=== PATIENT | female | born 1970 | race Caucasian/White ===

== ENCOUNTER 2016-12-17 06:05 | Day surgery (SDC) ==
[2016-12-12 15:42] LABS: URINE MICRO REVIEW NEEDED? NO; URINE SOURCE CLEAN CATCH
[2016-12-12 15:56] LABS: HEMATOCRIT 44.4 % (37.0-47.0); HEMOGLOBIN 14.8 g/dL (12.0-16.0); MCH 30.5 PG (27-31); MCHC 33.3 g/dL (33-37); MCV 91.4 FL (81-99); MPV 11.1 FL (7.4-10.4); RBC 4.86 XMIL (4.2-5.4)
[2016-12-12 15:58] LABS: BILIRUBIN URINE NEGATIVE (NEGATIVE); BLOOD URINE NEGATIVE (NEGATIVE); COLOR STRAW; GLUCOSE URINE NEGATIVE (NEGATIVE); LEUKOCYTES URINE NEGATIVE (NEGATIVE); NITRITE URINE NEGATIVE (NEGATIVE); PROTEIN URINE NEGATIVE (NEGATIVE); SP GRAVITY URINE 1.008; TURBIDITY URINE CLEAR (CLEAR); UROBILINOGEN URINE NORMAL (NORMAL)
[2016-12-12 16:00] LABS: UR EPITHELIAL CELLS <10 /HPF (<10); URINE BACTERIA NEGATIVE /HPF; URINE RBC <10 /HPF (<10); URINE WBC <10 /HPF (<10)
[2016-12-17] MEDS ORDERED: SUFENTA ONE (06:10)
[2016-12-17] MEDS ORDERED: PEPCID ONE (06:22)
[2016-12-17] MEDS ORDERED: REGLAN ONE (06:22)
[2016-12-17] MEDS ORDERED: LR 1,000 ML ONE ×2 (06:22→10:32)
[2016-12-17] MEDS ORDERED: TRANSDERM-SCOP ONE (06:22)
[2016-12-17] MEDS ORDERED: KEFZOL 1 GM/D5W 50 ML ONE ×2 (06:23→11:15)
[2016-12-17] MEDS ORDERED: BACITRACIN ONE (06:31)
[2016-12-17] MEDS ORDERED: NS 2,000 ML ONE (06:31)
[2016-12-17] MEDS ORDERED: VERSED ONE (10:22)
[2016-12-17] MEDS ORDERED: DIPRIVAN 1% ONE (10:23)
[2016-12-17] MEDS ORDERED: NEOSTIGMINE ONE (10:27)
[2016-12-17] MEDS ORDERED: STERILE WATER INJ. ONE (10:27)
[2016-12-17] MEDS ORDERED: LUBRIFRESH PM OPH OINTMENT ONE (10:27)
[2016-12-17] MEDS ORDERED: NORCURON ONE (10:27)
[2016-12-17] MEDS ORDERED: NEO-SYNEPHRINE ONE (10:27)
[2016-12-17] MEDS ORDERED: ROBINUL ONE (10:27)
[2016-12-17] MEDS ORDERED: ZOFRAN ONE (10:27)
[2016-12-17] MEDS ORDERED: LR 3,000 ML ONE (10:28)
[2016-12-17] MEDS ORDERED: DECADRON ONE (10:28)
[2016-12-17] MEDS ORDERED: QUELICIN (DOSE) ONE (10:28)
[2016-12-17] MEDS ORDERED: XYLOCAINE-MPF 2% ONE (10:28)
[2016-12-17] MEDS: DEMEROL ONE ×2 (10:31→10:36)
[2016-12-17] MEDS ORDERED: NORCO-10 ONE (11:15)
[2016-12-17] MEDS ORDERED: PHENERGAN ONE (11:23)
--- NOTE | 2016-12-17 12:32 | OPERATIVE NOTE ---
PROCEDURE DATE: 12/17/2016 PROCEDURE PERFORMED: Immediate exchange of right breast reconstructive implant to a new implant and left augmentation mammoplasty. SURGEON: Marin Montes MD. ICD 10 DIAGNOSES CODES: 1. N64.89 - Deformity of the breast. 2. Z86.3 - Personal history of breast cancer. CPT CODES: 1. 27003 - Immediate insertion of breast implant on the right. 2. 16714 - Left augmentation mammoplasty. INDICATIONS FOR PROCEDURE: This patient is a 46-year-old white female who had a breast cancer in 2005. At that point, she was treated with a mastectomy, a right latissimus dorsi flap and the immediate insertion of an implant, which was a 168, 120 mL implant, filled to 120 mL. She has done well for the past 10 years. However, the implant on the right side and the breast on the right side. Has changed shape through time as her latissimus dorsi the muscle has atrophied and she now requires revision of this implant to have a wider implant with more projection to match her other breast. Because the new implant will have more of a round implant look on the right side, it is necessary to do a small augmentation on her left side for symmetry. The patient was seen in the office for informed consent for the augmentation on 12/09/2016. At that point, she understood that she would have an augmentation mammoplasty on the left side and the goal of the procedure was to make her breast bigger to match what we were going to do to the right side. She understands she will have an inframammary incision and the implant will be placed partially behind the muscle she knows the risks include infection, blood loss, blood clots in legs, heart problems, lung problems, allergic reactions, or blood and serum collections in the operative sites which might require drainage. She understands that exact size and shape cannot be guaranteed as with nonoperative breast there can be some asymmetry from side to side. She knows that her skin incisions will be in the inframammary fold and that is where the scar will be. She understands that her nipple sensation can be decreased. She understands that the implant can be palpable or visible with overlying ripples. She understands she can get hard scar capsule contracture and these are saline implants and they can deflate. She knows in the future she is to have routine mammography on the left side. DESCRIPTION OF PROCEDURE: The patient was brought to the operating room after she was marked in outpatient surgery in the sitting position. She went to the operating room, had general anesthesia, and was prepped and draped. The operation began by making a superior periareolar incision around the right nipple-areolar complex reconstruction, carrying the dissection down to the level of the muscle, opening the muscle, aspirating the implant, and removing it from the pocket. Some scoring was done of the pocket, 360 degrees around, and especially in the lateral inferior pole, where there was an indentation from the atrophy of the latissimus. A 240 mL sizer was placed into this pocket and filled to 240 mL to begin to assess the size that would be appropriate. Then, attention was turned to the left breast. The 3 cm lower pole incision for the augmentation was made in the standard fashion and carried down through the breast tissue to the level of the pectoralis major muscle and then the muscle was lifted to create a submuscular pocket without difficulty. On this side, the 240 mL sizer that was placed on the right side was removed and placed on this side and filled to 210 mL. Then, a 270 mL sizer was placed in the right side and filled to 300 mL. The size and shape of these devices seemed to be appropriate for the patient to give her good symmetry. Therefore, both devices were removed. Both pockets were irrigated with bacitracin solution. Drains were placed in both pockets and preplaced 3-0 Polysorb interrupted sutures were placed in the pocket, capsule, muscle, and breast tissue. On the left side, a 210 mL implant was opened, placed in the pocket, and filled to 240. On the right side, a 270 mL implant was opened, placed in the pocket, and filled to 300. The size and shape of the implants was found to be good. It was decided to remove 15 mL from the left side, so the final fill volume of the left implant is 225 mL. The 3-0 Polysorb sutures were tied down. Another old a layer of 3-0 Polysorb sutures was placed in the fat and then, on the left side, the skin was closed with 4-0 Polysorb interrupted deep dermal sutures and then a 5-0 nylon running stitch. On the right side, the dermis was closed with 4-0 Polysorb interrupted deep dermal sutures and then a running 5-0 Biosyn subcuticular stitch. The drains were secured with silk drain stitches. A small stab incision was made in the previous scar along the xiphoid so liposuction could be done of the right inframammary fold to make it more defined. This was done. That incision was closed with 5-0 Polysorb interrupted deep dermal sutures, and 5-0 nylon stitches. Steri-Strips were applied to the wounds. She then was put in the sitting position and the inframammary folds were taped with Elastoplast tape. She tolerated the procedure well and was transported to the recovery room in good condition. The type of implants that we used in this patient were Augmentix Style 168 implants. The right side was a 270 mL implant filled to 300, serial #[id number]. The left side was a 210 mL implant filled to 225 mL, serial #[id number]. She tolerated the procedure well and was transported to the recovery room in good condition.
[2016-12-17 12:50] VITALS: BP 107/64
== END 2016-12-17 13:14 | disposition home or self-care (01) ==
LOC: OPS 06:05
PROVIDERS: ATTEND Surgery Plastic and Reconstructive Surgery
DX: N65.0 Deformity of reconstructed breast (principal); Z85.3 Personal history of malignant neoplasm of breast; E03.9 Hypothyroidism, unspecified; K21.9 Gastro-esophageal reflux disease without esophagitis; F17.210 Nicotine dependence, cigarettes, uncomplicated
CPT/HCPCS: 81001; 81025; 85027; C1789; J0330; J0690; J1100; J2175; J2250; J2370; J2405; J7030; J7120; J2710